=== PATIENT | male | born 1950 | race Caucasian/White ===

== ENCOUNTER 2018-02-02 14:26 | Outpatient (CLI) | payer BC ==
[2018-02-02 15:43] LABS: eGFR (Non-African) > 60
== END 2018-02-02 14:28 ==
LOC: LAB 14:26
PROVIDERS: ATTEND Internal Medicine Cardiovascular Disease
DX: I50.32 Chronic diastolic (congestive) heart failure (principal)
CPT/HCPCS: 36415; 80048